=== PATIENT | male | born 1955 | race Caucasian/White ===

== ENCOUNTER 2018-04-01 10:08 | Outpatient (CLI) | payer OTHER ==
[2018-04-01 14:12] LABS: BASO % 0.2 % (0.0-1.5); EOS % 1.6 % (0.0-6.8); LYMPH ABS # 1.66 thou/uL (0.60-4.00); MCH. 35.1 pg (28.0-34.0); MCV 101.2 fL (80.0-100.0); MONOCYTE % 9.9 % (0.0-11.0); MONOCYTE ABS # 0.58 thou/uL (0.00-0.90); PLATELET COUNT 236 thou/uL (130-400)
[2018-04-01 14:21] LABS: TOTAL PROTEIN 5.9 g/dL (6.0-8.5)
== END 2018-04-01 10:10 ==
LOC: LAB 10:08
PROVIDERS: ATTEND General Practice
DX: F03.90 Unspecified dementia, unspecified severity, without behavioral disturbance, psychotic disturbance, mood disturbance, and anxiety (principal)
CPT/HCPCS: 80053; 85025